=== PATIENT | female | born 1965 | race African-American/Black ===

== ENCOUNTER 2016-08-04 23:18 | Emergency (ER) | payer MEDICAID, OTHER ==
[~2016-08-04] VITALS: Ht 154.9 cm; Wt 58.5 kg
[~2016-08-04 23:18] MED LIST: NKM
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
[2016-08-04] MEDS ORDERED: Norco 5mg/325mg tab ORAL ONE (23:45)
[2016-08-05] MEDS ORDERED: CYCLOBENZAPRINE10 MG ORAL (01:43)
[2016-08-05] MEDS ORDERED: IBUPROFEN600 MG ORAL (01:43)
[2016-08-05 01:50] VITALS: BP 98/49
[2016-08-05 01:51] VITALS: BP 98/49
--- NOTE | 2016-08-05 09:09 | Diagnostic Imaging Report ---
Indication: pain Findings: 3 views of the right hand were obtained. There is no acute fracture. Degenerative changes of the fifth DIP joint noted with osteophytes. There is no malalignment. Impression: Osteoarthritis fifth DIP joint
--- NOTE | 2016-08-07 09:10 | Diagnostic Imaging Report ---
Indication: Back pain Comparison: None Findings: 5 views of the lumbar spine were obtained. No acute fracture or malalignment is identified. Vertebral body heights and disk spaces are well maintained. Posterior elements are unremarkable. Impression: No acute findings.
== END 2016-08-05 01:53 | disposition home or self-care (01) ==
LOC: EMR 08-05 00:12
DX: S39.012A Strain of muscle, fascia and tendon of lower back, initial encounter (principal); S63.601A Unspecified sprain of right thumb, initial encounter; V49.50XA Passenger injured in collision with unspecified motor vehicles in traffic accident, initial encounter; Y92.410 Unspecified street and highway as the place of occurrence of the external cause; M19.041 Primary osteoarthritis, right hand
CPT/HCPCS: 72110; 99284